=== PATIENT | female | born 1955 | race Asian ===

== ENCOUNTER 2018-01-17 10:42 | Emergency (ER) | payer SELFPAY ==
[2018-01-17 11:07] VITALS: BP 174/77; PULSE 61; RESP 18; TEMP 97.8
--- NOTE | 2018-01-17 11:45 | XR ---
EXAMINATION TYPE: XR shoulder complete RT DATE OF EXAM: 01/17/2018 COMPARISON: NONE HISTORY: 62-year-old female pain after fall TECHNIQUE: 3 views FINDINGS: Mild degenerative changes at the AC joint with marginal spurring and capsular hypertrophy. Subacromia l space is preserved. There is mild bony irregularity at the greater tuberosity without acute fractur e or dislocation. Visualized right hemithorax is clear. IMPRESSION: No acute osseous abnormality seen. Mild AC joint OA and changes of chronic rotator cuff tendinopathy.
[2018-01-17] MEDS ORDERED: IBUPROFEN 600 MG TAB PO STA (12:46)
--- NOTE | 2018-01-17 13:03 | ED ---
Upper Extremity HPI - General Chief Complaint: Extremity Injury, Upper Stated Complaint: [facility] - rt shoulder injury from fall Time Seen by Provider: 01/17/18 12:26 Source: patient, RN notes reviewed Mode of arrival: ambulatory Limitations: no limitations - History of Present Illness Initial Comments: This is a 62-year-old female who presents to the emergency department with chief complaint of right shoulder injury. Patient states that at 10 AM this morning she was getting out of the car and slipped on a patch of ice, landing on her right shoulder. Patient denies any head or neck trauma. She denies any other injuries. She states that there is radiation of pain from her right shoulder down her arm. Patient is not on any blood thinners. Denies fever, chills, chest pain, shortness of breath, abdominal pain, nausea or vomiting, constipation or diarrhea, numbness or tingling, headache or vision changes. - Related Data Home Medications Medication Instructions Recorded Confirmed Levothyroxine Sodium [Synthroid] 125 mcg PO DAILY 01/17/18 01/17/18 Multivitamins, Thera [Multivitamin 1 tab PO DAILY 01/17/18 01/17/18 (formulary)] Allergies Allergy/AdvReac Type Severity Reaction Status Date / Time No Known Allergies Allergy Verified 01/17/18 12:34 Review of Systems ROS Statement: Those systems with pertinent positive or pertinent negative responses have been documented in the HPI. ROS Other: All systems not noted in ROS Statement are negative. Past Medical History Past Medical History: Thyroid Disorder History of Any Multi-Drug Resistant Organisms: None Reported Past Surgical History: No Surgical Hx Reported Past Psychological History: No Psychological Hx Reported Smoking Status: Never smoker Past Alcohol Use History: None Reported Past Drug Use History: None Reported General Exam - General Exam Comments Initial Comments: General: Awake and alert, well-developed; in no apparent distress. is at bedside. HEENT: Head atraumatic, normocephalic. Pupils are equal, round and reactive to light. Extraocular movements intact. Oropharynx moist without erythema or exudate. Neck: Supple. Normal ROM. Cardiovascular: Regular rate and rhythm. No murmurs, rubs or gallops. Chest symmetrical. Respiratory: Lungs clear to auscultation bilaterally. No wheezes, rales or rhonchi. Normal respiratory effort with no use of accessory muscles. Musculoskeletal: Limited range of motion of the right shoulder with flexion. Normal range of motion with abduction and abduction. No clavicular, scapular or AC joint tenderness. No obvious gross deformities. Sensation is intact. Radial pulses are 2+ equal and palpable bilaterally. No swelling, bruising or abrasions noted. Skin: [place], warm and dry without rashes or lesions. Neurological: Alert and oriented x3. CN II-XII grossly intact. Speech is fluent and answers are appropriate. No focal neuro deficits. Psychiatric: Normal mood and affect. No overt signs of depression or anxiety noted. Limitations: no limitations Course Vital Signs 01/17/18 11:05 Temperature 97.8 F Pulse Rate 61 Respiratory 18 Rate Blood Pressure 174/77 O2 Sat by Pulse 98 Oximetry Medical Decision Making - Medical Decision Making This is a 62-year-old female who presents to the emergency department with chief complaint of right shoulder injury. X-ray revealed no acute abnormalities. Patient does have some limited range of motion with flexion due to pain. Recommended rest, ice and ibuprofen as needed. Patient is to follow- up with her primary care provider within 1-2 days. She is in agreement with plan and voices understanding. All questions were answered. Patient will be discharged home at this time. She is in no acute distress. - Radiology Data Radiology results: report reviewed Right shoulder x-ray findings: Mild degenerative changes at the AC joints with marginal sprain capsular hypertrophy. Subacromial space is preserved. There is mild bony irregularity at the greater tuberosity without acute fracture or dislocation. Visualized right hemithorax is clear. Impression: No acute osseous abnormality seen. Mild AC joint osteoarthritis and changes of chronic rotator cuff tendinopathy. Disposition Clinical Impression: Strain of shoulder Disposition: HOME SELF-CARE Condition: Good Instructions: Shoulder Sprain (ED) Additional Instructions: Please rest, ice and take ibuprofen or Tylenol as needed. Please follow up with your primary care provider in 1-2 days. Please return to the emergency department if any concerns arise or worsening of symptoms occurs. Referrals: Rosalie Nixon DO [Primary Care Provider] - 1-2 days Time of Disposition: 13:02
== END 2018-01-17 13:34 | disposition home or self-care (01) ==
LOC: EC 10:42
DX: S46.911A Strain of unspecified muscle, fascia and tendon at shoulder and upper arm level, right arm, initial encounter (principal); E07.9 Disorder of thyroid, unspecified; Z79.899 Other long term (current) drug therapy; W01.0XXA Fall on same level from slipping, tripping and stumbling without subsequent striking against object, initial encounter; Y99.0 Civilian activity done for income or pay
CPT/HCPCS: 99283